=== PATIENT | female | born 1945 | race Caucasian/White ===

== ENCOUNTER 2019-09-04 12:14 | Day surgery (SDC) | payer MEDICARE ==
[~2019-09-04] VITALS: Ht 157.5 cm; Wt 94.6 kg
[2019-09-04] VITALS (10 sets, daily range): BP systolic 131–168; BP diastolic 60–106
[2019-09-04] MEDS ORDERED: diphenhydrAMINE 25mg capsule PO PRN (12:50)
[2019-09-04] MEDS ORDERED: normal saline 1,000 ML IV SCH (12:50)
[2019-09-04] MEDS ORDERED: ALPR-624 PO (13:25)
[2019-09-04] MEDS ORDERED: ROSU40TA PO (13:25)
[2019-09-04] MEDS ORDERED: FURO40TA4 PO (13:25)
[2019-09-04] MEDS ORDERED: LEVO75TA PO (13:25)
[2019-09-04] MEDS ORDERED: SPIR50TA PO (13:25)
[2019-09-04] MEDS ORDERED: CLOP75TA35 PO (13:25)
[2019-09-04] MEDS ORDERED: SECU150S SQ (13:25)
[2019-09-04] MEDS ORDERED: OMEP40CA13 PO (13:25)
[2019-09-04] MEDS ORDERED: EST1T PO (13:25)
[2019-09-04] MEDS ORDERED: DULO60CA45 PO (13:25)
[2019-09-04] MEDS ORDERED: CHOL500049 PO (13:25)
[2019-09-04] MEDS ORDERED: HYDR-4383 PO (13:25)
[2019-09-04] MEDS ORDERED: ASPI81TA52 PO (13:25)
[2019-09-04] MEDS ORDERED: TRAZ-219 PO (13:25)
[2019-09-04 13:34] LABS: BASOPHILS # (AUTO) 0.1 X10'3 (0-0.2); BASOPHILS % (AUTO) 0.7 % (0-1); EOSINOPHILS # (AUTO) 0.2 X10'3 (0-0.9); HEMATOCRIT 39.8 % (35.0-45.0); HEMOGLOBIN 12.7 g/dl (12.0-16.0); LYMPHOCYTES # (AUTO) 2.1 X10'3 (1.1-4.8); MEAN CORPUSCULAR HGB CONC 31.8 g/dL (33.0-36.5); MEAN CORPUSCULAR VOLUME 75.2 FL (78-98); MEAN PLATELET VOLUME 7.2 FL (7.4-10.4); MONOCYTES # (AUTO) 0.8 X10'3 (0-0.9); MONOCYTES % (AUTO) 9.4 % (2-12); NEUTROPHILS # (AUTO) 5.1 X10'3 (1.8-7.7); NEUTROPHILS % (AUTO) 61.9 % (42-75); PLATELET COUNT 228 X10'3 (140-440); RED BLOOD COUNT 5.29 X10'6 (4.20-5.60); RED CELL DISTRIBUTION WIDTH 17.4 % (11.5-14.5); WHITE BLOOD COUNT 8.2 X10'3 (4.5-11.0)
[2019-09-04 13:39] LABS: ALBUMIN 3.3 G/DL (3.4-5.0); ANION GAP 5 (8-16); BLOOD UREA NITROGEN 15 MG/DL (7-18); CALCIUM 9.6 MG/DL (8.5-10.1); CHLORIDE 104 MMOL/L (99-107); CREATININE 0.88 MG/DL (0.40-0.90); GLUCOSE 95 MG/DL (70-104); MAGNESIUM 2.1 MG/DL (1.5-2.4); POTASSIUM 4.4 MMOL/L (3.5-5.1); SODIUM 143 MMOL/L (135-145); TOTAL CARBON DIOXIDE 34.2 MMOL/L (24-32); eGFR 63 ML/MIN
[2019-09-04] MEDS ORDERED: LIDOcaine 1% (10mg/ml)w/preservative injection 20ml MDV ONE (15:33)
[2019-09-04] MEDS ORDERED: fentaNYL/PF 50MCG/1 ML 2ML syringe ONE (15:33)
[2019-09-04] MEDS ORDERED: iohexol 350 MG/ML 50ML vial IV ONE (15:33)
[2019-09-04] MEDS ORDERED: midazolam 2 mg/2 ml injection ONE ×4 (15:33→16:32)
[2019-09-04] MEDS ORDERED: iohexol 350MG/ML 100ml bottle IV ONE ×2 (15:33→16:19)
[2019-09-04] MEDS ORDERED: heparin 1,000unit/ml 10ml vial 10 ML ONE (16:19)
[2019-09-04] MEDS ORDERED: clopidogrel 300mg tablet ONE (16:45)
[2019-09-04] MEDS ORDERED: HYDROcodone/acetaminophen 10/325mg tab PO PRN (17:15)
[2019-09-04] MEDS ORDERED: proCHLORperazine 10 MG/2 ml inj IV PRN (17:15)
[2019-09-04] MEDS ORDERED: HYDROcodone/acetaminophen 5mg/325mg tablet PO PRN (17:15)
[2019-09-04] MEDS ORDERED: normal saline 1000ml 1,000 ML IV SCH (17:15)
[2019-09-04] MEDS ORDERED: ondansetron/PF 4mg/2ml inj IV PRN (17:15)
== END 2019-09-04 20:30 | disposition home or self-care (01) ==
LOC: SSTAY O 12:14
PROVIDERS: ATTEND Internal Medicine Cardiovascular Disease
DX: I25.118 Atherosclerotic heart disease of native coronary artery with other forms of angina pectoris (principal); M06.9 Rheumatoid arthritis, unspecified; E78.5 Hyperlipidemia, unspecified; E03.9 Hypothyroidism, unspecified; I11.0 Hypertensive heart disease with heart failure; I50.32 Chronic diastolic (congestive) heart failure; L40.50 Arthropathic psoriasis, unspecified; K21.9 Gastro-esophageal reflux disease without esophagitis; D50.9 Iron deficiency anemia, unspecified; G47.30 Sleep apnea, unspecified; Z98.890 Other specified postprocedural states; Z98.51 Tubal ligation status; Z90.710 Acquired absence of both cervix and uterus; Z79.01 Long term (current) use of anticoagulants; Z79.899 Other long term (current) drug therapy; Z79.82 Long term (current) use of aspirin; Z90.10 Acquired absence of unspecified breast and nipple; Z88.0 Allergy status to penicillin; Z95.5 Presence of coronary angioplasty implant and graft
CPT/HCPCS: 36415; 80048; 83735; 85025; 85610; 93005; 93458; 99152; 99153; C1769; C1874; C1894; C9600; J1644; J2001; J2250; J3010; J7030; Q0163; Q9967; A4620; A6258; C1760

== ENCOUNTER 2020-10-28 09:36 | Day surgery (SDC) | payer MEDICARE ==
[2020-10-28] VITALS (9 sets, daily range): BP systolic 118–159; BP diastolic 60–77
[~2020-10-28] VITALS: Ht 157.5 cm; Wt 93.4 kg
[~2020-10-28 09:36] MED LIST: ALPR-624 PO; ASPI81TA52 PO; CHOL500049 PO; CLOP75TA35 PO; DULO60CA45 PO; EST1T PO; FURO40TA4 PO; HYDR-4383 PO; LEVO75TA PO; OMEP40CA13 PO; ROSU40TA PO; SECU150S SQ; SPIR50TA PO; TRAZ-256 PO
[2020-10-28] MEDS ORDERED: ARA20T PO (10:02)
[2020-10-28] MEDS ORDERED: ERGO500056 PO (10:05)
[2020-10-28] MEDS ORDERED: fentaNYL/PF 50MCG/1 ML 2ML syringe ONE (10:12)
[2020-10-28] MEDS ORDERED: iohexol 350 MG/ML 50ML vial IV ONE (10:12)
[2020-10-28] MEDS ORDERED: iohexol 350MG/ML 100ml bottle IV ONE ×2 (10:12→11:13)
[2020-10-28] MEDS ORDERED: midazolam 2 mg/2 ml injection ONE ×3 (10:12→11:01)
[2020-10-28] MEDS ORDERED: heparin 1,000unit/ml 10ml vial 10 ML ONE (10:12)
[2020-10-28] MEDS ORDERED: LIDOcaine 1% (10mg/ml)w/preservative injection 20ml MDV ONE (10:17)
[2020-10-28] MEDS ORDERED: normal saline 1,000 ML IV SCH (10:20)
[2020-10-28] MEDS ORDERED: diphenhydrAMINE 25mg capsule PO PRN (10:20)
[2020-10-28 10:45] LABS: BASOPHILS # (AUTO) 0.1 X10'3 (0-0.2); LYMPHOCYTES # (AUTO) 1.5 X10'3 (1.1-4.8); MONOCYTES # (AUTO) 0.8 X10'3 (0-0.9)
[2020-10-28 10:47] LABS: BASOPHILS % (AUTO) 0.8 % (0-1); EOSINOPHILS # (AUTO) 0.2 X10'3 (0-0.9); EOSINOPHILS % (AUTO) 2.6 % (0-6); HEMATOCRIT 44.8 % (35.0-45.0); HEMOGLOBIN 14.3 g/dl (12.0-16.0); LYMPHOCYTES % (AUTO) 24.8 % (21-51); MEAN CORPUSCULAR HGB CONC 31.9 g/dL (33.0-36.5); MEAN CORPUSCULAR VOLUME 78.4 FL (78-98); MEAN PLATELET VOLUME 7.5 FL (7.4-10.4); MONOCYTES % (AUTO) 12.6 % (2-12); NEUTROPHILS # (AUTO) 3.6 X10'3 (1.8-7.7); NEUTROPHILS % (AUTO) 59.2 % (42-75); PLATELET COUNT 161 X10'3 (140-440); RED BLOOD COUNT 5.71 X10'6 (4.20-5.60); RED CELL DISTRIBUTION WIDTH 16.9 % (11.5-14.5); WHITE BLOOD COUNT 6.1 X10'3 (4.5-11.0)
[2020-10-28 10:57] LABS: ANION GAP 8 (8-16); BLOOD UREA NITROGEN 17 MG/DL (7-18); CALCIUM 9.9 MG/DL (8.5-10.1); CHLORIDE 101 MMOL/L (99-107); CREATININE 0.85 MG/DL (0.40-0.90); GLUCOSE 104 MG/DL (70-104); MAGNESIUM 2.1 MG/DL (1.5-2.4); POTASSIUM 4.1 MMOL/L (3.5-5.1); SODIUM 141 MMOL/L (135-145); TOTAL CARBON DIOXIDE 32.5 MMOL/L (24-32); eGFR 65 ML/MIN
[2020-10-28] MEDS ORDERED: metoprolol tartrate 1mg/ml inj IV ONE (11:04)
[2020-10-28] MEDS ORDERED: clopidogrel 300mg tablet ONE (11:30)
== END 2020-10-28 15:00 | disposition home or self-care (01) ==
LOC: SSTAY O 09:36
PROVIDERS: ATTEND Internal Medicine Cardiovascular Disease
DX: I25.118 Atherosclerotic heart disease of native coronary artery with other forms of angina pectoris (principal); I50.32 Chronic diastolic (congestive) heart failure; I11.0 Hypertensive heart disease with heart failure; E78.5 Hyperlipidemia, unspecified; M06.9 Rheumatoid arthritis, unspecified; E03.9 Hypothyroidism, unspecified; K21.9 Gastro-esophageal reflux disease without esophagitis; L40.50 Arthropathic psoriasis, unspecified; G47.30 Sleep apnea, unspecified; J44.9 Chronic obstructive pulmonary disease, unspecified; D50.9 Iron deficiency anemia, unspecified; Z95.5 Presence of coronary angioplasty implant and graft; Z79.899 Other long term (current) drug therapy; Z98.51 Tubal ligation status; Z98.890 Other specified postprocedural states; Z90.710 Acquired absence of both cervix and uterus; Z90.10 Acquired absence of unspecified breast and nipple
CPT/HCPCS: 80048; 83735; 85025; 85610; 93005; 93458; 99152; 99153; C1751; C1760; C1769; C1874; C1894; C9600; J1644; J2001; J2250; J3010; J7030; Q0163; Q9967; A4620; A6258; J3490

== ENCOUNTER 2021-04-09 15:03 | Outpatient (CLI) | payer BC ==
[~2021-04-09 15:03] MED LIST changes: +ARA20T PO; +CLOP75TA34 PO; -CLOP75TA35 PO; +ERGO500056 PO; -SPIR50TA PO
== END 2021-04-09 23:59 | disposition home or self-care (01) ==
LOC: RAD 15:03
PROVIDERS: ATTEND Nurse Practitioner Family
DX: R13.11 Dysphagia, oral phase (principal); R13.14 Dysphagia, pharyngoesophageal phase; K21.9 Gastro-esophageal reflux disease without esophagitis; Z85.89 Personal history of malignant neoplasm of other organs and systems
CPT/HCPCS: 74230